=== PATIENT | female | born 1990 | race Caucasian/White ===

== ENCOUNTER → 2017-05-10 | Outpatient (CLI) | payer OTHER ==
[~2017-05-10] MED LIST: ACET325T96 PO; BCPILLS PO; IBUP-1050 PO; PRENTAB26 PO
== END | disposition home or self-care (01) ==
LOC: C.PAPS 07:42
PROVIDERS: ATTEND Obstetrics & Gynecology
DX: Z12.4 Encounter for screening for malignant neoplasm of cervix (principal); R87.612 Low grade squamous intraepithelial lesion on cytologic smear of cervix (LGSIL)

== ENCOUNTER 2017-05-24 18:53 | Emergency (ER) | payer OTHER ==
[~2017-05-24] VITALS: Ht 165.1 cm; Wt 124.4 kg
[~2017-05-24 18:53] MED LIST changes: -ACET325T96 PO; -BCPILLS PO; -IBUP-1050 PO
[2017-05-24 19:05] VITALS: TEMP 37.2; Ht 165.1 cm; Wt 124.4 kg
[2017-05-24] MEDS ORDERED: SODIUM CHLORIDE 0.9% 1000ML 500 ML IV STA (19:34)
[2017-05-24 19:48] VITALS: O2SAT 97
--- NOTE | 2017-05-24 19:57 | EMERGENCY ROOM VISIT NOTE ---
History Report prepared by Carmine: Katie Valverde Under the Supervision of: Dr. Edward Bravo M.D. First contact with patient: 19:32 Chief Complaint: CHEST PAIN Stated Complaint: CHEST PAIN, STRAINED CHEST MUSCLE MAYBE? Nursing Triage Summary: Patient presents to triage for evaluation of right sided chest pain that began a few days ago. Patient states, "I walked a short distance and became very short of breath. I felt like my heart was really racing." control recently switched on Saturday. History of Present Illness The patient is a 26 year old female who presents to the Emergency Room with complaints of intermittent right sided chest pain that began yesterday. The patient states that on Saturday she had her control changed. She states that throughout the day yesterday she didn't notice the pain as much because she was so focused at work. The patient states that when she got home from work last evening she noticed the pain more. She states that last evening she noticed discomfort when she was lying on her back. The patient states that today she noticed the pain intermittently again, noting that she alternated between cold and hot compresses while at work. She states that today she walked in and out of the office once and states that she became tachycardic and short of breath. The patient states that her pain is worsened with deep breathing. She denies any pain radiating into her back. The patient denies any cough or fever. She denies any history of PE or DVT. The patient denies being on any other medications. She reports a family history of heart disease, noting that her father at 39 years old from a myocardial infarction. The patient states that she travelled to the [facility] in March, but denies any other recent travel. Source of History: patient Onset: yesterday Position: chest (right) Timing: intermittent Modifying Factors (Worsening): breathing (deep) Associated Symptoms: + SOB, No fevers, No cough Note: Associated symptoms: tachycardic Review of Systems See HPI for pertinent positives & negatives. A total of 10 systems reviewed and were otherwise negative. Past Medical & Surgical Medical Problems: (1) Hypertension Family History Diabetes mellitus FH: heart disease Hypertension Social History Smoking Status: Never Smoker Marital Status: single Occupation Status: employed Current/Historical Medications Scheduled Control Pills ( Control Pills), 1 TAB PO DAILY Scheduled PRN Acetaminophen Tab (Tylenol), 650 MG PO Q8 PRN for Pain or Fever Ibuprofen (Advil), 200-600 MG PO Q4H PRN for Pain or Fever Allergies Coded Allergies: Penicillins (Verified Allergy, Intermediate, RASH, 05/24/17) Physical Exam Vital Signs Date Time Temp Pulse Resp B/P (MAP) Pulse Ox O2 Delivery O2 Flow Rate FiO2 05/24/17 22:34 111 05/24/17 22:31 110/84 05/24/17 22:06 114 19 98 05/24/17 22:01 114/74 05/24/17 21:46 115/78 05/24/17 21:31 106/76 05/24/17 21:06 112 24 98 05/24/17 21:01 113/82 05/24/17 20:36 114 23 98 05/24/17 20:31 131/83 05/24/17 20:23 113 98 05/24/17 20:01 146/95 05/24/17 19:54 120 05/24/17 19:53 119 21 97 05/24/17 19:48 97 Room Air 05/24/17 19:47 151/110 05/24/17 19:08 95 Room Air 05/24/17 19:05 37.2 127 18 138/90 97 Room Air Physical Exam GENERAL: Patient is in no acute distress. HEENT: No acute trauma, normocephalic atraumatic, mucous membranes moist, no nasal congestion, no scleral icterus. NECK: No stridor, no adenopathy, no meningismus, trachea is midline. CHEST: Nontender chest wall. LUNGS: Clear to auscultation bilaterally, no wheeze, no rhonchi, breath sounds equal. HEART: Tachycardic with a regular rhythm, no murmurs. ABDOMEN: Soft, nontender, bowel sounds positive, no hernias, no peritonitis. EXTREMITIES: No cyanosis or edema, full range of motion of all the joints without pain or difficulty, no signs for acute trauma. NEUROLOGIC: Oriented x 3, no acute motor or sensory deficits, no focal weakness. SKIN: No rash, no jaundice, no diaphoresis. Medical Decision & Procedures ER Provider Diagnostic Interpretation: Radiology results as stated below per my review and radiologist interpretation: CHEST ONE VIEW PORTABLE CLINICAL HISTORY: Chest pain. COMPARISON STUDY: No previous studies for comparison. FINDINGS: Lung volumes are at the lower limits of normal. There is no consolidation or evidence of pulmonary edema. Cardiomediastinal silhouette is unremarkable on this portable AP projection. No pneumothorax or pleural effusion is identified. IMPRESSION: No acute cardiopulmonary findings. Electronically signed by: Timoteo Epstein M.D. 05/24/2017 7:55 PM Dictated Date/Time: 05/24/2017 7:[address] ANGIOGRAPHY OF THE CHEST, PULMONARY EMBOLUS PROTOCOL CLINICAL HISTORY: Chest pain. COMPARISON STUDY: Chest radiograph performed earlier today. TECHNIQUE: Following IV administration of 90 mL of Optiray-320, helical axial images of the chest were obtained utilizing the pulmonary embolus protocol. Maximal intensity projections and sagittal and coronal reformats were viewed on an independent 3D workstation. IV contrast was administered without complication. A dose lowering technique was utilized adhering to the principles of ALARA. CT DOSE: 632.59 mGy.cm FINDINGS: This study is markedly compromised by respiratory motion artifact. No central pulmonary embolus is identified. The lobar, segmental and subsegmental pulmonary emboli are inadequately assessed due to respiratory motion. There is no evidence for thoracic aortic dissection. Size of the heart is at the upper limits of normal. There is no pericardial effusion. No enlarged thoracic lymph nodes are present. Lungs are suboptimally assessed due to respiratory motion but no lobar consolidation is present. There is no pneumomediastinum. No pneumothorax or pleural effusion is present. Bony thorax and upper abdomen are unremarkable. IMPRESSION: 1. Study markedly compromised by respiratory motion artifact. No central pulmonary embolus. Lobar, segmental and subsegmental pulmonary arteries inadequately assessed due to motion artifact. 2. Borderline cardiomegaly. No thoracic aortic dissection. 3. No acute intrathoracic findings. Electronically signed by: Timoteo Epstein M.D. 05/24/2017 10:01 PM Dictated Date/Time: 05/24/2017 9:55 PM Laboratory Results 05/24/17 19:50 05/24/17 19:50 Test 05/24/17 19:50 05/24/17 19:58 Red Blood Count 4.59 M/uL (4.2-5.4) Mean Corpuscular Volume 85.8 fL (80-100) Mean Corpuscular Hemoglobin 29.4 pg (25-34) Mean Corpuscular Hemoglobin Concent 34.3 g/dl (32-36) RDW Standard Deviation 41.5 fL (36.4-46.3) RDW Coefficient of Variation 13.3 % (11.5-14.5) Mean Platelet Volume 10.4 fL (7.4-10.4) Prothrombin Time 10.3 SECONDS (9.0-12.0) Prothromb Time International Ratio 1.0 (0.9-1.1) Activated Partial Thromboplast Time 35.6 SECONDS (21.0-31.0) Partial Thromboplastin Ratio 1.4 Anion Gap 8.0 mmol/L (3-11) Est Creatinine Clear Calc Drug Dose 148.7 ml/min Estimated GFR () 125.5 Estimated GFR (Non- 108.3 BUN/Creatinine Ratio 15.9 (10-20) Calcium Level 8.9 mg/dl (8.5-10.1) Total Bilirubin 0.5 mg/dl (0.2-1) Aspartate Amino Transf (AST/SGOT) 15 U/L (15-37) Alanine Aminotransferase (ALT/SGPT) 29 U/L (12-78) Alkaline Phosphatase 77 U/L (45-117) Troponin I < 0.015 ng/ml (0-0.045) Total Protein 8.3 gm/dl (6.4-8.2) Albumin 3.5 gm/dl (3.4-5.0) Globulin 4.8 gm/dl (2.5-4.0) Albumin/Globulin Ratio 0.7 (0.9-2) Bedside D-Dimer 374 ng/mlFEU (0-450) Laboratory results reviewed by me. Medications Administered Medications (Trade) Dose Ordered Sig/Garrick Route Start Time Stop Time Status Last Admin Dose Admin Sodium Chloride 500 ml @ 999 mls/hr Q31M STAT IV 05/24/17 19:34 05/24/17 20:04 DC 05/24/17 19:54 999 MLS/HR Sodium Chloride 500 ml @ 999 mls/hr Q31M STAT IV 05/24/17 22:15 05/24/17 22:45 DC 05/24/17 22:33 999 MLS/HR ECG Indication: chest pain, SOB/dyspnea, tachycardia Rate (beats per minute): 117 Rhythm: sinus tachycardia Findings: no acute ischemic change, no ectopy ED Course 1933: The patient was evaluated in room B9. A complete history and physical exam was performed. 1933: Ordered Sodium Chloride 500 ml @ 999 mls/hr IV. 2036: I reevaluate the patient and she is resting comfortably. I discussed the exam findings with her. I discussed the risks and benefits of a CT Scan. She will have a CT. 2214: Ordered Sodium Chloride 500 ml @ 999 mls/hr IV. 2232: I reevaluated the patient and she is resting comfortably. I discussed the exam findings with her and I discussed the treatment plan. She verbalized complete understanding and agreement. She is ready to go home. Medical Decision The patient is a 26 year old female who presents to the ED with complaints of chest pain. Differential diagnoses considered include musculoskeletal pain, pneumonia, pneumothorax, cardiac ischemia, dysrhythmia, PE, aortic dissection, DVT. There is a mild leukocytosis, this could be consistent with infection or the stress of her situation. No concerning anemia. No significant electrolyte abnormality, kidney failure or hepatitis. There is no coagulopathy. D-dimer testing is negative making PE less likely. Chest x-ray does not show pneumonia or CHF. There was no pneumothorax. Chest CT does not show evidence for PE. The PE study was somewhat compromised though by motion artifact. EKG shows a sinus tachycardia, no acute ischemia. Cardiac enzyme testing times one is not consistent with acute cardiac injury. The patient was given IV saline, she has done well here in the emergency room. She admits that she is under some increased stress and certainly, this could be part of her situation. She describes her pain as worse with certain movements and a musculoskeletal component to the pain is possible. Workup here is reassuring, the patient is being discharged home with outpatient follow-up. If worsening, she can return. Impression Primary Impression: Right-sided chest pain Additional Impression: Tachycardia Scribe Attestation The scribe's documentation has been prepared under my direction and personally reviewed by me in its entirety. I confirm that the note above accurately reflects all work, treatment, procedures, and medical decision making performed by me. Departure Information Dispostion Home / Self-Care Referrals No Doctor, Assigned (PCP) Forms HOME CARE DOCUMENTATION FORM, IMPORTANT VISIT INFORMATION Patient Instructions My [facility] [employer] Additional Instructions motrin 600 mg 3x per day for 3 days heat to the chest wall may help rest stay well hydrated see evin stein for a reheck next week return for worsening symptoms Problem Qualifiers
[2017-05-24] MEDS ORDERED: ACET325T96 PO (20:10)
[2017-05-24] MEDS ORDERED: BCPILLS PO (20:10)
[2017-05-24] MEDS ORDERED: IBUP-1050 PO (20:10)
[2017-05-24 20:24] LABS: HEMATOCRIT 39.4 % (37-47); MEAN CELL VOLUME 85.8 fL (80-100); MEAN CORPUSCULAR HEMOGLOBIN 29.4 pg (25-34); MEAN CORPUSCULAR HGB CONC 34.3 g/dl (32-36); MEAN PLATELET VOLUME 10.4 fL (7.4-10.4); PLATELET COUNT 242 K/uL (130-400); RED BLOOD COUNT 4.59 M/uL (4.2-5.4)
[2017-05-24 20:35] LABS: PARTIAL THROMBOPLASTIN RATIO 1.4; PROTHROMBIN TIME (PATIENT) 10.3 SECONDS (9.0-12.0)
[2017-05-24 20:38] LABS: ALT/SGPT 29 U/L (12-78); BLOOD UREA NITROGEN 12 mg/dl (7-18); BUN/CREATININE RATIO 15.9 (10-20); CALCIUM 8.9 mg/dl (8.5-10.1); CARBON DIOXIDE 25 mmol/L (21-32); CHLORIDE 105 mmol/L (98-107); CREATININE 0.76 mg/dl (0.60-1.20); GLUCOSE 94 mg/dl (70-99); POTASSIUM 3.6 mmol/L (3.5-5.1); SODIUM 138 mmol/L (136-145)
[2017-05-24 20:43] LABS: ALB/GLOB RATIO 0.7 (0.9-2); ALKALINE PHOSPHATASE 77 U/L (45-117); AST/SGOT 15 U/L (15-37)
[2017-05-24] MEDS ORDERED: OPTIRAY 320 IV PRN (20:45)
--- NOTE | 2017-05-24 22:02 | DIAGNOSTIC IMAGING REPORT ---
CT ANGIOGRAPHY OF THE CHEST, PULMONARY EMBOLUS PROTOCOL CLINICAL HISTORY: Chest pain. COMPARISON STUDY: Chest radiograph performed earlier today. TECHNIQUE: Following IV administration of 90 mL of Optiray-320, helical axial images of the chest were obtained utilizing the pulmonary embolus protocol. Maximal intensity projections and sagittal and coronal reformats were viewed on an independent 3D workstation. IV contrast was administered without complication. A dose lowering technique was utilized adhering to the principles of ALARA. CT DOSE: 632.59 mGy.cm FINDINGS: This study is markedly compromised by respiratory motion artifact. No central pulmonary embolus is identified. The lobar, segmental and subsegmental pulmonary emboli are inadequately assessed due to respiratory motion. There is no evidence for thoracic aortic dissection. Size of the heart is at the upper limits of normal. There is no pericardial effusion. No enlarged thoracic lymph nodes are present. Lungs are suboptimally assessed due to respiratory motion but no lobar consolidation is present. There is no pneumomediastinum. No pneumothorax or pleural effusion is present. Bony thorax and upper abdomen are unremarkable. IMPRESSION: 1. Study markedly compromised by respiratory motion artifact. No central pulmonary embolus. Lobar, segmental and subsegmental pulmonary arteries inadequately assessed due to motion artifact. 2. Borderline cardiomegaly. No thoracic aortic dissection. 3. No acute intrathoracic findings. Electronically signed by: Timoteo Epstein M.D. 05/24/2017 10:01 PM Dictated Date/Time: 05/24/2017 9:55 PM
[2017-05-24 22:06] VITALS: O2SAT 98
[2017-05-24] MEDS ORDERED: SODIUM CHLORIDE 0.9% 500ML 500 ML IV STA (22:15)
[2017-05-24 22:31] VITALS: BP 110/84
[2017-05-24 22:34] VITALS: PULSE 111
== END 2017-05-24 22:47 | disposition home or self-care (01) ==
LOC: C.EDB 18:54
DX: R07.9 Chest pain, unspecified (principal); R00.0 Tachycardia, unspecified; Z79.3 Long term (current) use of hormonal contraceptives; I10 Essential (primary) hypertension; Z83.3 Family history of diabetes mellitus; Z82.49 Family history of ischemic heart disease and other diseases of the circulatory system

== ENCOUNTER → 2017-06-28 | Outpatient (CLI) | payer OTHER ==
[~2017-06-28] MED LIST changes: +ACET325T96 PO; +BCPILLS PO; +IBUP-1050 PO; -PRENTAB26 PO
== END | disposition home or self-care (01) ==
LOC: C.LABSPEC 17:42 → C.PATHSPEC 17:48
PROVIDERS: ATTEND Obstetrics & Gynecology
DX: N87.1 Moderate cervical dysplasia (principal)